=== PATIENT | female | born 1965 | race American Indian/Alaskan Native ===

== ENCOUNTER 2016-12-06 19:39 | Emergency (ER) | payer BC | END 2016-12-06 19:40 | disposition left against medical advice (07) | LOC: ED 19:39 | DX: R42 Dizziness and giddiness (principal); R53.1 Weakness; Z53.21 Procedure and treatment not carried out due to patient leaving prior to being seen by health care provider ==

== ENCOUNTER 2016-12-15 13:13 | Inpatient (IN) | payer BC, OTHER ==
--- NOTE | 2016-12-15 20:27 | Emergency Department Report ---
HPI - General Chief Complaint: Weakness Time Seen by Provider: 12/15/16 20:01 - HPI HPI: Room 25 Patient is a 51-year-old female presenting with chief complaint of weakness. Patient states for the past 3 weeks since her blood pressure medication has been changed she has felt lethargic. The patient states she has had intermittent chest discomfort. The patient admits to dyspnea on exertion and shortness of breath. Patient admits to easy fatigability. Patient states she went to [facility] 12/11/2016. Patient states she had a pelvic ultrasound performed which was normal, chest x-ray and EKG which were normal. The patient was told she was anemic but not severe enough to require blood transfusion. The patient was discharged to continue taking her iron but her symptoms did not improve so she comes to the ED today for evaluation. Patient states she had a stress test in 2014 but has never had a cardiac catheterization Location: [see above] Duration: Intermittent 3 weeks Quality: Discomfort, fatigue Severity: Moderate Modifying factors: [see above] Context: [see above] Mode of transportation: [not driving] ED Past Medical Hx - Past Medical History Previous Medical History?: Yes Hx Hypertension: Yes Additional medical history: ANEMIA, HEART MURMUR, FIBROIDS - Surgical History Past Surgical History?: Yes Additional Surgical History: RIGHT EYE LASER SURGERY 03/25/15 - Family History Family history: no significant - Social History Smoking Status: Never Smoker Substance Use Type: None - Medications Home Medications: Home Medications Medication Instructions Recorded Confirmed Last Taken Type Brimonidine Tartrate [Alphagan P 1 drop OU Q8HR 03/26/15 03/26/15 Unknown History 0.1%] Clarithromycin [Biaxin] 500 mg PO BID 03/26/15 03/26/15 Unknown History Ferrous Sulfate [Feosol 325 MG tab] 325 mg PO BID 03/26/15 03/26/15 Unknown History Ketorolac Ophth Soln (Nf) [Acular 1 drop OP QID 03/26/15 03/26/15 Unknown History Ophth Soln 0.5%] Potassium Gluconate 595 mg PO DAILY 03/26/15 03/26/15 Unknown History amLODIPine [Norvasc] 5 mg PO DAILY 03/26/15 03/26/15 Unknown History metroNIDAZOLE [Flagyl] 500 mg PO BID 03/26/15 03/26/15 Unknown History Pantoprazole [Protonix TAB] 20 mg PO BID #60 tablet. 03/28/15 Unknown Rx ED Review of Systems ROS: Stated complaint: FATIGUE Other details as noted in HPI Comment: All other systems reviewed and negative Constitutional: malaise Eyes: denies: eye pain, eye discharge, vision change ENT: denies: ear pain, throat pain Respiratory: shortness of breath, SOB with exertion. denies: cough, wheezing Cardiovascular: chest pain Endocrine: no symptoms reported Gastrointestinal: denies: abdominal pain, nausea, diarrhea Genitourinary: abnormal menses. denies: urgency, dysuria, discharge Musculoskeletal: denies: back pain, joint swelling, arthralgia Skin: denies: rash, lesions Neurological: headache Psychiatric: denies: anxiety, depression Hematological/Lymphatic: denies: easy bleeding, easy bruising Physical Exam - Physical Exam Vital Signs: Vital Signs 12/15/16 14:33 Temperature 98.3 F Pulse Rate 64 Respiratory 18 Rate Blood Pressure 151/87 O2 Sat by Pulse 100 Oximetry Physical Exam: GENERAL: The patient is well-developed well-nourished female sitting on stretcher not appearing to be in acute distress. [] HEENT: Normocephalic. Atraumatic. Extraocular motions are intact. NECK: Supple. No meningitic signs are noted. Trachea midline CHEST/LUNGS: Clear to auscultation. There is no respiratory distress noted. HEART/CARDIOVASCULAR: Regular. There is no tachycardia. There is no gallop rub or murmur. ABDOMEN: Abdomen is soft, nontender. Patient has normal bowel sounds. There is no abdominal distention. SKIN: There is no rash. There is no edema. There is no diaphoresis. NEURO: The patient is awake, alert, and oriented. The patient is cooperative. The patient has no focal neurologic deficits. The patient has normal speech. Cranial nerves II through XII grossly intact, no drift MUSCULOSKELETAL: There is no evidence of acute injury. ED Course Vital Signs 12/15/16 14:33 Temperature 98.3 F Pulse Rate 64 Respiratory 18 Rate Blood Pressure 151/87 O2 Sat by Pulse 100 Oximetry ED Medical Decision Making - Lab Data Result diagrams: 12/15/16 23:02 12/15/16 23:02 Laboratory Tests 12/15/16 12/15/16 12/15/16 20:29 20:48 20:48 WBC RBC Hgb Hct MCV MCH MCHC RDW Plt Count Lymph % (Auto) Griggs % (Auto) Eos % (Auto) Baso % (Auto) Lymph # Griggs # Eos # Baso # Seg Neutrophils % Seg Neutrophils # PT 13.5 INR 1.04 APTT 40.4 H Sodium Potassium Chloride Carbon Dioxide Anion Gap BUN Creatinine Estimated GFR BUN/Creatinine Ratio Glucose Calcium Troponin T < 0.010 NT-Pro-B Natriuret Pep 23.44 TSH Free T4 HCG, Qual Urine Color Yellow Urine Turbidity Clear Urine pH 5.0 Ur Specific Taiban 1.016 Urine Protein <15 mg/dl Urine Glucose (UA) Neg Urine Ketones 20 Urine Blood Mod Urine Nitrite Neg Urine Bilirubin Neg Urine Urobilinogen < 2.0 Ur Leukocyte Esterase Neg Urine WBC (Auto) 1.0 Urine RBC (Auto) 1.0 U Epithel Cells (Auto) 3.0 Urine Bacteria (Auto) 1+ Urine Mucus Few 12/15/16 12/15/16 12/15/16 20:48 20:48 23:02 WBC 7.2 RBC 4.18 Hgb 9.2 L Hct 28.7 L MCV 69 L MCH 22 L MCHC 32 RDW 17.4 H Plt Count 336 Lymph % (Auto) 28.9 Griggs % (Auto) 5.9 Eos % (Auto) 1.5 Baso % (Auto) 0.6 Lymph # 2.1 Griggs # 0.4 Eos # 0.1 Baso # 0.0 Seg Neutrophils % 63.1 Seg Neutrophils # 4.5 PT INR APTT Sodium Potassium Chloride Carbon Dioxide Anion Gap BUN Creatinine Estimated GFR BUN/Creatinine Ratio Glucose Calcium Troponin T NT-Pro-B Natriuret Pep TSH 2.390 Free T4 1.25 HCG, Qual Negative Urine Color Urine Turbidity Urine pH Ur Specific Taiban Urine Protein Urine Glucose (UA) Urine Ketones Urine Blood Urine Nitrite Urine Bilirubin Urine Urobilinogen Ur Leukocyte Esterase Urine WBC (Auto) Urine RBC (Auto) U Epithel Cells (Auto) Urine Bacteria (Auto) Urine Mucus 12/15/16 23:02 WBC RBC Hgb Hct MCV MCH MCHC RDW Plt Count Lymph % (Auto) Griggs % (Auto) Eos % (Auto) Baso % (Auto) Lymph # Griggs # Eos # Baso # Seg Neutrophils % Seg Neutrophils # PT INR APTT Sodium 140 Potassium 4.1 Chloride 103.3 Carbon Dioxide 24 Anion Gap 17 BUN 10 Creatinine 0.7 Estimated GFR > 60 BUN/Creatinine Ratio 14.28 Glucose 91 Calcium 9.2 Troponin T NT-Pro-B Natriuret Pep TSH Free T4 HCG, Qual Urine Color Urine Turbidity Urine pH Ur Specific Taiban Urine Protein Urine Glucose (UA) Urine Ketones Urine Blood Urine Nitrite Urine Bilirubin Urine Urobilinogen Ur Leukocyte Esterase Urine WBC (Auto) Urine RBC (Auto) U Epithel Cells (Auto) Urine Bacteria (Auto) Urine Mucus - EKG Data -: EKG Interpreted by Me EKG shows normal: sinus rhythm Rate: normal - EKG Data When compared to previous EKG there are: previous EKG unavailable Interpretation: nonspecific ST-T wave gopi (T-wave inversion in lead 3) - Radiology Data Radiology results: report reviewed (CT head), image reviewed (CT head, chest x- ray) interpreted by me: Chest x-ray-no focal infiltrates, no pneumothorax CT head (read by radiologist)-no acute abnormality - Differential Diagnosis symptomatic anemia, hypothyroidism, electrolyte imbalance, ICH Critical care attestation.: If time is entered above; I have spent that time in minutes in the direct care of this critically ill patient, excluding procedure time. ED Disposition Clinical Impression: Chest discomfort, Fatigue Disposition: OP ADMITTED IP TO THIS HOSP Is pt being admited?: Yes Does the pt Need Aspirin: Yes Condition: Fair Referrals: PRIMARY CARE, [Primary Care Provider] - 3-5 Days Time of Disposition: 23:43 (hospitalist paged)
[2016-12-15 21:51] LABS: Bacteria,Urine 1+ /HPF (Negative); Bilirubin,Urine NEG (Negative); Blood,Urine MOD (Negative); Ketones,Urine 20 mg/dL (Negative); Leukocyte Esterase,Urine NEG (Negative); Mucus,Urine FEW /HPF; Nitrite,Urine NEG (Negative); Protein,Urine <15 mg/dL mg/dL (Negative); Urobilinogen,Urine < 2.0 mg/dL (<2.0)
[2016-12-15 22:05] LABS: INR 1.04 (0.87-1.13)
[2016-12-15 22:06] LABS: Partial Thromboplastin Time 40.4 Sec. (24.2-36.6)
--- NOTE | 2016-12-15 22:13 | Cat Scan Report ---
FINAL REPORT EXAM: CT HEAD/BRAIN WO CON HISTORY: headache, dizziness TECHNIQUE: CT imaging acquired through the head without intravenous contrast. Transaxial reformations are provided. PRIORS: None. FINDINGS: The ventricles, cisterns and sulci are within normal limits. No intraparenchymal or extra-axial mass, hemorrhage, or mass effect. Eng and white-matter differentiation is within normal limits for patient age. Normal spherical shape of the globes. Paranasal sinuses and mastoid air cells are clear. No skull or facial fracture visualized. IMPRESSION: No acute intracranial abnormality.
[2016-12-15 23:32] LABS: Basophils % (Auto) 0.6 % (0.0-1.8); Eosinophils % (Auto) 1.5 % (0.0-4.3); Hematocrit 28.7 % (30.3-42.9); Hemoglobin 9.2 gm/dl (10.1-14.3); Mean Corpuscular HGB Conc 32 % (30-34); Platelet Count 336 K/mm3 (140-440); Red Blood Count 4.18 M/mm3 (3.65-5.03); Red Cell Distribution Width 17.4 % (13.2-15.2); White Blood Count 7.2 K/mm3 (4.5-11.0)
[2016-12-15 23:34] LABS: Anion Gap 17 mmol/L; BUN/Creatinine Ratio 14.28; Blood Urea Nitrogen 10 mg/dL (7-17); Calcium 9.2 mg/dL (8.4-10.2); Carbon Dioxide 24 mmol/L (22-30); Chloride 103.3 mmol/L (98-107); Glucose 91 mg/dL (65-100); Potassium 4.1 mmol/L (3.6-5.0); Sodium 140 mmol/L (137-145)
[2016-12-15 23:41] LABS: Mean Corpuscular Hemoglobin 22 pg (28-32); Mean Corpuscular Volume 69 fl (79-97)
[2016-12-16] MEDS ORDERED: DULCOLAX PR PRN (00:36)
[2016-12-16] MEDS ORDERED: MILK OF MAGNESIA PO PRN (00:36)
[2016-12-16] MEDS ORDERED: ZOFRAN IV PRN (00:36)
--- NOTE | 2016-12-16 00:48 | History and Physical Report ---
History of Present Illness Date of examination: 12/15/16 Date of admission: 12/15/16 23:49 History of present illness: 51-year-old woman history of hypertension, migraine, fibrous comes emergency room with complaints of chest pain located in the epigastric area which she describes as a pressure-like sensation, intermittent in nature lasting for 10 minutes, intensity, 10, no radiation. She admits to shortness breath, palpitations, no nausea vomiting or diaphoresis. Patient stated that her medication was changed 3 weeks ago after which her symptoms started. Norvasc was discontinued, she was started on nifedipine and lisinopril. She was seen at [place] for similar symptoms, was discharged from the emergency room Patient denies cough, abdominal pain, hematochezia, dysuria, frequency, focal weakness, dysarthria, fever chills, polydipsia polyuria, hot or cold intolerance , easy bruisability, or rash or bleeding from mucosal membrane, rhinorrhea, epistaxis, earache, tinnitus, blurry vision, eye discharge, anxiety, depression. Other review of systems negative PAST SURGICAL HISTORY: Eye surgery SOCIAL HISTORY: Denies tobacco, drugs, alcohol FAMILY HISTORY: Hypertension Medications and Allergies Allergies Allergy/AdvReac Type Severity Reaction Status Date / Time regadenoson [From Lexiscan] Allergy Intermediate Hives Verified 03/27/15 20:17 aspirin Allergy Nausea Verified 03/26/15 21:24 codeine Allergy Dizziness Verified 03/26/15 21:24 Penicillins Allergy Unknown Verified 03/26/15 21:24 Home Medications Medication Instructions Recorded Confirmed Last Taken Type Brimonidine Tartrate [Alphagan P 1 drop OU Q8HR 03/26/15 03/26/15 Unknown History 0.1%] Clarithromycin [Biaxin] 500 mg PO BID 03/26/15 03/26/15 Unknown History Ferrous Sulfate [Feosol 325 MG tab] 325 mg PO BID 03/26/15 03/26/15 Unknown History Ketorolac Ophth Soln (Nf) [Acular 1 drop OP QID 03/26/15 03/26/15 Unknown History Ophth Soln 0.5%] Potassium Gluconate 595 mg PO DAILY 03/26/15 03/26/15 Unknown History amLODIPine [Norvasc] 5 mg PO DAILY 03/26/15 03/26/15 Unknown History metroNIDAZOLE [Flagyl] 500 mg PO BID 03/26/15 03/26/15 Unknown History Pantoprazole [Protonix TAB] 20 mg PO BID #60 tablet. 03/28/15 Unknown Rx Active Meds: Active Medications Acetaminophen (Tylenol) 650 mg PO Q4H PRN PRN Reason: Pain MILD(1-3)/Fever >100.5/FRANCO Bisacodyl (Dulcolax) 10 mg AR QDAY PRN PRN Reason: Constipation unrelieved by MOM Ferrous Sulfate (Feosol) 325 mg PO BID STEPHEN Magnesium Hydroxide (Milk Of Magnesia) 30 ml PO Q4H PRN PRN Reason: Constipation Miscellaneous Medication (Brimonidine Tartrate [Alphagan P 0.1%]) 1 drop OU Q8HR STEPHEN Miscellaneous Medication (Ketorolac Ophth Soln (Nf)) 1 drop OP QID STEPHEN Ondansetron HCl (Zofran) 4 mg IV Q8H PRN PRN Reason: N/V unrelieved by Reglan Pantoprazole Sodium (Protonix) 20 mg PO BID [facility] Exam - Physical Exam Narrative exam: Gen. appearance: Patient lying in bed, no apparent distress HEENT: Normocephalic, atraumatic, pupils equally round and reactive to light, extraocular movement intact, and no sclericterus,. No JVD or thyromegaly or nodule,neck supple, no carotid bruit ,mucous membranes moist, no exudate or erythema Heart: S1, S2, regular rate and rhythm Lungs: Clear to auscultation bilaterally, breathing comfortable Abdomen: Positive bowel sounds, nontender, nondistended, no organomegaly Extremity: No edema, cyanosis, clubbing Skin: No rash, nodules, warm, dry Neuro: Oriented 3, cranial nerves II-12 intact, speech is fluent, motor and sensory intact - Constitutional Vitals: Temp Pulse Resp BP Pulse Ox 98 F 70 70 H 143/77 100 12/15/16 20:00 12/15/16 20:00 12/15/16 20:17 12/15/16 20:00 12/15/16 20:00 Results - Labs CBC & Chem 7: 12/15/16 23:02 12/15/16 23:02 - Imaging and Cardiology EKG: image reviewed Chest x-ray: image reviewed CT Scan - head: report reviewed Assessment and Plan Chest pain Hypertension Migraine Symptoms most likely suggestive of side effect from nifedipine Discontinue nifedipine, check cardiac enzymes, obtain stress test Start IV morphine, DVT prophylaxis, IV hydralazine for blood pressure control
[2016-12-16 04:29] LABS: Creatine Kinase MB 1.3 ng/mL (0.0-4.0)
[2016-12-16 04:34] LABS: Creatine Kinase 83 units/L (30-135)
[2016-12-16] MEDS ORDERED: NON-FORMULARY (Brimonidine Tartrate [Alphagan P 0.1%] 1 DROP) OU SCH (06:00)
[2016-12-16 07:13] LABS: Creatine Kinase MB 1.5 ng/mL (0.0-4.0)
[2016-12-16 07:17] LABS: Creatine Kinase 82 units/L (30-135)
--- NOTE | 2016-12-16 08:02 | XRay Report ---
Single view chest: Compared to 03/26/15. History: Chest pain. Findings: Normal cardiomediastinal silhouette. Trachea is midline. No consolidation, pneumothorax or pleural effusion. Impression: No acute cardiopulmonary findings.
--- NOTE | 2016-12-16 09:15 | Admit Criteria Form ---
Admission Criteria Documentation: CARDIOLOGY GRG Clinical Indications for Admission to Inpatient Care ( Place 'X' for any and all applicable criteria): Hospital admission is needed for appropriate care of the patient because of ANY ONE of the following (1): [ ] I. Hemodynamic instability as indicated by ALL of the following (1)(2)(3) (4)(5) [ ]a) Vital signs or other findings not as expected for chronic patient condition or baseline [ ]b) Instability indicated by ANY ONE of the following: [ ]i) Hypotension [ ]ii) Symptomatic Tachycardia unresponsive to treatment ( e.g., analgesia, fluids, sedation as indicated) [ ]iii) Inadequate perfusion indicated by ANY ONE of the following: [ ] 1) Lactic acidosis (> 2 mmol/L) [ ] 2) New abnormal capillary refill (> 3 seconds) [ ] 3) Reduced urine output [ ] 4) New altered mental status [ ]iv) Orthostatic vital sign changes unresponsive to treatment (e.g., fluids) [ ]v) IV inotropic or vasopressor medication required to maintain adequate blood pressure or perfusion [ ] II. Severe heart failure as indicated by ANY ONE of the following(17)(18) [ ]a) Respiratory distress [ ]b) Hypotension [ ]c) Anasarca (refractory to outpatient therapy) [ ]d) Cardiac arrhythmias of immediate concern [ ]e) Myocardial ischemia [ ] III. Cardiac arrhythmias or findings of immediate concern indicated by ANY ONE of the following (19)(20): [ ] a) Heart rhythms that are inherently dangerous or unstable indicated by ANY ONE of the following (21)(22)(23): [ ] i) Resuscitated ventricular fibrillation or cardiac arrest [ ] ii) Ventricular escape rhythm [ ] iii) Sustained ventricular tachycardia (30 seconds or more of ventricular rhythm at greater than 100 beats per minute) [ ] iv) Nonsustained ventricular tachycardia and ANY ONE of the following: [ ] 1) Suspected cardiac ischemia as cause or consequence of ventricular tachycardia [ ] 2) In setting of acute myocarditis [ ] b) Unstable cardiac conduction defects indicated by ANY ONE of the following(23)(24)(25) [ ] i) Type II second-degree atrioventricular block [ ]ii) Third-degree atrioventricular block [ ]iii) New-onset left bundle branch block with suspected myocardial ischemia [ ]c) Any heart rhythm and ANY ONE of the following (21)(22)(26)(27) (28) [ ] i) Continuous long-term ECG monitoring needed (e.g., initiation of drug requiring monitoring for more than 24 hours) [ ] ii) Patient has automatic implanted cardioverter defibrillator that is repeatedly firing, malfunctioning, or in need of immediate adjustment of settings beyond the scope of ambulatory or observation care [ ]d) Heart rhythms of concern due to ANY ONE of the following: [ ] i) Hypotension [ ] ii) Respiratory distress [ ] iii) Association with other significant symptoms (e.g., bradycardia with syncope or ongoing dizziness, supraventricular tachycardia with chest pain (14)(15)(17) [ ] IV. Monitoring for cardiac contusion beyond the scope of observation care needed [A](30)(31)(32) [ ] V. Surgical or device complication (e.g., valve replacement complication , pacemaker dysfunction) (35)(41)(44)(45)(46) [ ] . Inpatient palliative care needed. [B](49) Also use Inpatient Palliative Care Criteria [ ] VII. Nonbacterial thrombotic (marantic) endocarditis (36)(43)(47)(48) [X ] VIII. Cardiology condition, symptom, or finding for which emergency and observation care has failed or are not considered appropriate. [ ] IX. Acute valvular disease requiring inpatient as indicated by ANY ONE of the following (41) [ ]a) Acute valvular regurgitation (42) [ ]b) Noninfectious valvulitis (43) [ ]c) Obstructive valve thrombosis [ ]d) Paravalvular leak [ ]e) Other significant valvular disorder remaining after emergency or observation level of care (as appropriate) [ ]X. Pericardial disease requiring inpatient treatment as indicated by ANY ONE of the following (33)(34)(35)(36)(37) [ ]a) Suspected tamponade (38)(39)(40) [ ]b) Hemopericardium [ ]c) Other significant pericardial disorder remaining after emergency or observation level of care (as appropriate) [ ] XI. Cardiac ischemia beyond scope of emergency and observation care. [ ] XII. Hypertension requiring inpatient treatment as indicated by ANY ONE of the following (6)(7)(8) [ ]a) SBP greater than 220 mm Hg or DBP greater than 120 mmHg despite treatment [ ]b) SBP greater than 140 mm Hg or DBP greater than 100 mm Hg with evidence of acute end organ damage as indicated by ANY ONE of the following [ ] i) Altered mental status [ ] ii) Acute renal failure as indicated by new onset of ANY ONE of the following (9)(10)(11)(12)(13) [ ]1) 3-fold rise in serum creatinine from baseline [ ]2) Serum creatinine greater than 4 mg/dL ( 354 micromoles/L) with acute rise greater than 0.5 mg/dL (44.2 micromoles/L) [ ]3) Reduction of more than 75% in estimated glomerular filtration rate from baseline [ ]4) Estimated glomerular filtration rate less than 35 mL/min/1.73m2 (0.59 mL/sec/1.73m2) in child up to 18 years of age [ ]5) Cessation of urine output indicated by ALL of the following [ ]A. Adequate volume status [ ]B. Inadequate urine output as indicated by ANY ONE of the following [ ]a. Urine output less than 0.3 mL/kg/hr for 24 hours [ ]b. Anuria (urine output less than 0.1 mL/kg/hr) for 12 hours [ ] iii) Aortic dissection [ ] iv) Myocardial Ischemia [ ] v) Left ventricular heart failure [ ]vi) Retinal Hemorrhage [ ]vii) Other significant finding [ ]c) Hypertension in child requiring inpatient treatment as indicated by ALL of the following(14)(15)(16) [ ] i) Outpatient treatment not effective, not available, or not appropriate [ ]ii) SBP or DBP greater than 95th percentile for age [ ]iii) Evidence of acute end organ damage as indicated by ANY ONE of the following [ ]1) Altered mental status [ ]2) Acute renal failure as indicated by new onset of ANY ONE of the following(9)(10)(11)(12)(13) [ ]A. 3-fold rise in serum creatinine from baseline [ ]B. Serum creatinine greater than 4 mg/dL (354 micromoles/L) with acute rise greater than 0.5 mg/dL (44.2 micromoles/L) [ ]C. Reduction of more than 75% in estimated glomerular filtration rate from baseline [ ]D. Estimated glomerular filtration rate less than 35 mL/min/1.73m2 (0.59 mL/sec/1.73m2) in child up to 18 years of age [ ]E. Cessation of urine output indicated by ALL of the following [ ]a. Adequate volume status [ ]b. Inadequate urine output as indicated by ANY ONE of the following [ ]i) Urine output less than 0.3 mL/kg/hr for 24 hours [ ]ii) Anuria ( urine output less than 0.1 mL/kg/hr) for 12 hours [ ]3) Severe headache [ ]4) Visual disturbance [ ]5) Retinal hemorrhage [ ]6) Other significant finding [ ]XIII. Complications of transplanted heart indicated by ANY ONE of the following(61): [ ]a) Acute graft rejection requiring inpatient management (eg, intravenous immunosuppression)(62)(63) [ ]b) Acute graft heart failure indicated by ANY ONE of the following(64): [ ]i) Hemodynamic instability [ ]ii) Cardiac arrhythmias of immediate concern [ ]iii) Pulmonary edema that is very severe (eg, mechanical ventilation needed, imminent or likely, need for 100% oxygen to keep oxygen saturation above 90%) [ ]iv) Pulmonary edema that is persistent as indicated by ALL of the following: [ ]1) New need for oxygen therapy to keep oxygen saturation above 90% (or increased FiO2 need from baseline) [ ]2) Has not improved sufficiently with emergency department or observation care IV diuretics or other heart failure treatments[E] [ ]v) Altered mental status that is severe or persistent [ ]vi) Increased creatinine (new on laboratory test) with reduction of more than 50% in estimated glomerular filtration rate from baseline [ ]vii) Progressively (ongoing) rising creatinine (known from past laboratory test) with reduction of more than 25% in estimated glomerular filtration rate from baseline [ ]viii) Acute renal failure [ ]ix) Acute peripheral ischemia (eg, examination shows pulseless, cool, mottled, or cyanotic extremity) [ ]x) Pulmonary artery catheter monitoring needed [ ]xi) Other sign or symptom of heart failure requiring inpatient treatment (ie, too severe or not responsive to outpatient and observation care treatment) [ ]c) Infection requiring inpatient management (eg, Hemodynamic instability, need for intravenous antimicrobial treatment)(66)(67)(68)(69)(70) [ ]d) Cardiac allograft vasculopathy requiring inpatient management ( eg evidence of cardiac ischemia)(71) [ ]e) Other complication of transplanted heart (eg, stroke, severe pulmonary hypertension, severe valvular dysfunction) requiring inpatient management(72) The original [facility] content created by [facility] has been revised. The portions of the content which have been revised are identified through the use of italic text or in bold, and [facility] has neither reviewed nor approved the modified material. All other unmodified content is copyright [facility] [employer]. Please see references footnoted in the original [facility] [employer] edition 2016 Admission Criteria Met: Yes
[2016-12-16] MEDS: TYLENOL PO PRN ×2 (09:40→16:24)
[2016-12-16] MEDS ORDERED: KETOROLAC OP SCH (10:00)
[2016-12-16] MEDS ORDERED: FEOSOL PO SCH (10:00)
[2016-12-16] MEDS ORDERED: PROTONIX PO SCH (10:00)
[2016-12-16] MEDS ORDERED: LEXISCAN IV ONE (12:32)
--- NOTE | 2016-12-16 13:40 | Progress Note ---
Assessment and Plan Assessment and plan: Patient is 51-year-old woman history of morbid obesity, hypertension and anemia who [place] [facility] [place] pains. Patient blames all her problems on nifedipine. She was on 5 mg of amlodipine and her pcp Dr. Eric's changed amlodipine to the nifedipine and lisinopril. Lisinopril made her lethargic so she was taken off of that but she did take after she was taken off by pcp. She started to have same problems which she is attributing to nifedipine. 1. Chest pain most likely muscle skeletal 2. Hypertension, chronic worsening 3. Microcytic anemia: Discuss outpatient screening Stress test negative she will be discharged home History Interval history: Patient seen and examined. Follow up on current diagnosis. Overnight uneventful. No cp, sob, n/v or severe headaches. Imaging, old records, testing, labs, nursing notes reviewed. Plan discussed with patient. Hospitalist Physical - Physical exam Narrative exam: GEN: WDWN, NAD, AWAKE, ALERT, ORIENTATED 3, BMI 40.1 HEENT: NCAT, PERRL, EOMI, OP CLEAR NECK: SUPPLE, NO THYROMEGALY, NO JVD, NO LAD CVS: RRR, NORMAL S1S2 LUNGS/CHEST: CTA B, NORMAL CHEST EXPANSION B, GOOD AIR ENTRY B, reproducible chest wall tenderness ABD: SOFT NTND, GBS, NO REBOUND OR GUARDING EXT/SKIN: NO SIGNIFICANT EDEMA OR RASH MSK: FROM X 4 EXTREMITIES NEURO: CN 2-12 GROSSLY INTACT, NO new FOCAL DEFICITS PSY: CALM - Constitutional Vitals: Temp Pulse Resp BP Pulse Ox 97.0 F L 60 16 106/56 100 12/16/16 07:58 12/16/16 11:00 12/16/16 09:40 12/16/16 07:58 12/16/16 07:58 Results - Labs CBC & Chem 7: 12/15/16 23:02 12/15/16 23:02 Labs: Laboratory Last Values WBC 7.2 K/mm3 (4.5-11.0) 12/15/16 23:02 RBC 4.18 M/mm3 (3.65-5.03) 12/15/16 23:02 Hgb 9.2 gm/dl (10.1-14.3) L 12/15/16 23:02 Hct 28.7 % (30.3-42.9) L 12/15/16 23:02 MCV 69 fl (79-97) L 12/15/16 23:02 MCH 22 pg (28-32) L 12/15/16 23:02 MCHC 32 % (30-34) 12/15/16 23:02 RDW 17.4 % (13.2-15.2) H 12/15/16 23:02 Plt Count 336 K/mm3 (140-440) 12/15/16 23:02 Lymph % (Auto) 28.9 % (13.4-35.0) 12/15/16 23:02 [place] % (Auto) 5.9 % (0.0-7.3) 12/15/16 23:02 Eos % (Auto) 1.5 % (0.0-4.3) 12/15/16 23:02 Baso % (Auto) 0.6 % (0.0-1.8) 12/15/16 23:02 Lymph # 2.1 K/mm3 (1.2-5.4) 12/15/16 23:02 [place] # 0.4 K/mm3 (0.0-0.8) 12/15/16 23:02 Eos # 0.1 K/mm3 (0.0-0.4) 12/15/16 23:02 Baso # 0.0 K/mm3 (0.0-0.1) 12/15/16 23:02 Seg Neutrophils % 63.1 % (40.0-70.0) 12/15/16 23:02 Seg Neutrophils # 4.5 K/mm3 (1.8-7.7) 12/15/16 23:02 PT 13.5 Sec. (12.2-14.9) 12/15/16 20:48 INR 1.04 (0.87-1.13) 12/15/16 20:48 APTT 40.4 Sec. (24.2-36.6) H 12/15/16 20:48 Sodium 140 mmol/L (137-145) 12/15/16 23:02 Potassium 4.1 mmol/L (3.6-5.0) 12/15/16 23:02 Chloride 103.3 mmol/L (98-107) 12/15/16 23:02 Carbon Dioxide 24 mmol/L (22-30) 12/15/16 23:02 Anion Gap 17 mmol/L 12/15/16 23:02 BUN 10 mg/dL (7-17) 12/15/16 23:02 Creatinine 0.7 mg/dL (0.7-1.2) 12/15/16 23:02 Estimated GFR > 60 ml/min 12/15/16 23:02 BUN/Creatinine Ratio 14.28 % 12/15/16 23:02 Glucose 91 mg/dL (65-100) 12/15/16 23:02 Calcium 9.2 mg/dL (8.4-10.2) 12/15/16 23:02 Total Creatine Kinase 82 units/L (30-135) 12/16/16 06:04 CK-MB (CK-2) 1.5 ng/mL (0.0-4.0) 12/16/16 06:04 CK-MB (CK-2) Rel Index 1.8 (0-4) 12/16/16 06:04 Troponin T < 0.010 ng/mL (0.00-0.029) 12/16/16 06:04 NT-Pro-B Natriuret Pep 23.44 pg/mL (0-900) 12/15/16 20:48 TSH 2.390 mlU/mL (0.270-4.200) 12/15/16 20:48 Free T4 1.25 ng/dL (0.76-1.46) 12/15/16 20:48 HCG, Qual Negative (Negative) 12/15/16 20:48 Urine Color Yellow (Yellow) 12/15/16 20:29 Urine Turbidity Clear (Clear) 12/15/16 20:29 Urine pH 5.0 (5.0-7.0) 12/15/16 20:29 Ur Specific [place] 1.016 (1.003-1.030) 12/15/16 20:29 Urine Protein <15 mg/dl mg/dL (Negative) 12/15/16 20:29 Urine Glucose (UA) Neg mg/dL (Negative) 12/15/16 20:29 Urine Ketones 20 mg/dL (Negative) 12/15/16 20:29 Urine Blood Mod (Negative) 12/15/16 20:29 Urine Nitrite Neg (Negative) 12/15/16 20:29 Urine Bilirubin Neg (Negative) 12/15/16 20:29 Urine Urobilinogen < 2.0 mg/dL (<2.0) 12/15/16 20:29 Ur Leukocyte Esterase Neg (Negative) 12/15/16 20:29 Urine WBC (Auto) 1.0 /HPF (0.0-6.0) 12/15/16 20:29 Urine RBC (Auto) 1.0 /HPF (0.0-6.0) 12/15/16 20:29 U Epithel Cells (Auto) 3.0 /HPF (0-13.0) 12/15/16 20:29 Urine Bacteria (Auto) 1+ /HPF (Negative) 12/15/16 20:29 Urine Mucus Few /HPF 12/15/16 20:29
--- NOTE | 2016-12-16 13:44 | Discharge Summary ---
Providers - Providers Date of Admission: 12/15/16 23:49 Date of discharge: 12/16/16 Attending physician: LAURITA DANIEL Primary care physician: TIFFANY CUNHA MD Hospitalization Condition: Stable Hospital course: Patient is 51-year-old woman with history of morbid obesity, hypertension and anemia who was just discharged from [facility] with similar complaints of chest pains. Patient blames all her problems on nifedipine. She was on 5 mg of amlodipine and her pcp Dr. Ceja changed amlodipine to the nifedipine and lisinopril. Lisinopril made her lethargic so she was taken off of that but she did take after she was taken off by pcp. She started to have same problems which she is attributing to nifedipine. 1. Chest pain most likely muscle skeletal 2. Hypertension, chronic worsening 3. Microcytic anemia: Discuss outpatient screening Stress test negative she will be discharged home Disposition: DISCHARGED TO HOME OR SELFCARE Time spent for discharge: 31 minutes Core Measure Documentation - Palliative Care Palliative Care/ Comfort Measures: Not Applicable - Core Measures Any of the following diagnoses?: none - VTE Discharge Requirements Deep Vein Thrombosis/Pulmonary Embolism Present on Admission: No Has pt received <5 days of overlap therapy or INR<2.0: No Anticoagulant overlap therapy prescribed at discharge: No Contraindication No Overlap Therapy order at DC: Not Indicated Exam - Physical Exam Narrative exam: GEN: WDWN, NAD, AWAKE, ALERT, ORIENTATED 3, BMI 40.1 HEENT: NCAT, PERRL, EOMI, OP CLEAR NECK: SUPPLE, NO THYROMEGALY, NO JVD, NO LAD CVS: RRR, NORMAL S1S2 LUNGS/CHEST: CTA B, NORMAL CHEST EXPANSION B, GOOD AIR ENTRY B, reproducible chest wall tenderness ABD: SOFT NTND, GBS, NO REBOUND OR GUARDING EXT/SKIN: NO SIGNIFICANT EDEMA OR RASH MSK: FROM X 4 EXTREMITIES NEURO: CN 2-12 GROSSLY INTACT, NO new FOCAL DEFICITS PSY: CALM - Constitutional Vitals: Temp Pulse Resp BP Pulse Ox 97.0 F L 60 16 106/56 100 12/16/16 07:58 12/16/16 11:00 12/16/16 09:40 12/16/16 07:58 12/16/16 07:58 Plan Activity: advance as tolerated (no strenous activites until cleared by PCP. ) Diet: low salt Follow up with: PRIMARY CARE, [Primary Care Provider] - 3-5 Days
[2016-12-16] MEDS ORDERED: DOBUTamine 100 MG in D5W 92 ML IV SCH (14:00)
[2016-12-16 15:58] VITALS: BP 117/65
--- NOTE | 2016-12-17 04:49 | Treadmill Report ---
INDICATION: Chest pain. FINDINGS: There is no scintigraphic evidence of myocardial ischemia. The left ventricle is normal in size and systolic function. The left ventricular ejection fraction is measured at 60%. Normal wall motion and wall thickening is noted on gated imaging. CONCLUSION: Normal perfusion scan. JOB# [id number] CHALINO/NOMAN
== END 2016-12-17 09:35 | disposition home or self-care (01) | DRG 313 ==
LOC: ED 13:13 → 4A 23:49
PROVIDERS: ADMIT Internal Medicine; ATTEND Internal Medicine
DX: R07.89 Other chest pain (principal); Z68.41 Body mass index [BMI] 40.0-44.9, adult; G43.909 Migraine, unspecified, not intractable, without status migrainosus; I10 Essential (primary) hypertension; E66.01 Morbid (severe) obesity due to excess calories; D50.9 Iron deficiency anemia, unspecified; Z79.84 Long term (current) use of oral hypoglycemic drugs; Z88.0 Allergy status to penicillin; Z88.6 Allergy status to analgesic agent; Z88.8 Allergy status to other drugs, medicaments and biological substances; Z82.49 Family history of ischemic heart disease and other diseases of the circulatory system
CPT/HCPCS: 36415; 70450; 71010; 78452; 80048; 81001; 82550; 82553; 83880; 84439; 84443; 84484; 84703; 85025; 85610; 85730; 93005; 93010; 93017; A9502; J1250; J2785

== ENCOUNTER 2017-01-03 00:08 | Emergency (ER) | payer OTHER ==
[2017-01-03 00:42] LABS: Basophils % (Auto) 0.5 % (0.0-1.8); Eosinophils % (Auto) 0.5 % (0.0-4.3); Hematocrit 31.3 % (30.3-42.9); Hemoglobin 9.9 gm/dl (10.1-14.3); Mean Corpuscular HGB Conc 32 % (30-34); Platelet Count 410 K/mm3 (140-440); Red Blood Count 4.58 M/mm3 (3.65-5.03); Red Cell Distribution Width 18.2 % (13.2-15.2); White Blood Count 9.1 K/mm3 (4.5-11.0)
[2017-01-03 01:04] LABS: Anion Gap 20 mmol/L; BUN/Creatinine Ratio 14.28; Blood Urea Nitrogen 10 mg/dL (7-17); Carbon Dioxide 22 mmol/L (22-30); Glucose 107 mg/dL (65-100); Potassium 3.7 mmol/L (3.6-5.0); Sodium 136 mmol/L (137-145)
[2017-01-03 01:16] LABS: Mean Corpuscular Hemoglobin 22 pg (28-32); Mean Corpuscular Volume 68 fl (79-97)
--- NOTE | 2017-01-03 08:48 | Emergency Department Report ---
HPI - General Chief Complaint: Dyspnea/Respdistress Time Seen by Provider: 01/03/17 08:21 - HPI HPI: Room 23 The patient is a 51-year-old female presenting with a chief complaint of fatigue in dyspnea on exertion. The patient states she came to the hospital because she "still having an irregular heartbeat." The patient admits to intermittent chest pain for several weeks sometimes she'll shortness breath and nausea. Patient admits to dyspnea on exertion. The patient was admitted to the hospital by myself for these complaints approximately 2 weeks ago. Patient had a stress test which was normal. Patient had a normal thyroid panel as well as proBNP ultrasound revealed an EF of 60%. The patient states she continues to have his symptoms and wants "to be checked for depression." Patient denies suicidal ideation Location: See above, mental state Duration: [see above] Quality: Fatigue Severity: Moderate Modifying factors: [see above] Context: [see above] Mode of transportation: [not driving] ED Past Medical Hx - Past Medical History Hx Hypertension: Yes Additional medical history: ANEMIA, HEART MURMUR, FIBROIDS - Surgical History Additional Surgical History: RIGHT EYE LASER SURGERY 03/25/15 - Family History Family history: no significant - Social History Smoking Status: Never Smoker Substance Use Type: None - Medications Home Medications: Home Medications Medication Instructions Recorded Confirmed Last Taken Type Brimonidine Tartrate [Alphagan P 1 drop OU Q8HR 03/26/15 01/03/17 1 Day Ago History 0.1%] 10 Ferrous Sulfate [Feosol 325 MG tab] 325 mg PO BID 03/26/15 01/03/17 1 Day Ago History 325 Ketorolac Ophth Soln (Nf) [Acular 1 drop OP QID 03/26/15 01/03/17 1 Day Ago History Ophth Soln 0.5%] 1 Potassium Gluconate 595 mg PO DAILY 03/26/15 01/03/17 1 Day Ago History 595 amLODIPine [Norvasc] 5 mg PO DAILY 03/26/15 01/03/17 1 Day Ago History 5 Pantoprazole [Protonix TAB] 20 mg PO BID #60 tablet. 03/28/15 01/03/17 1 Day Ago Rx 20 hydrOXYzine PAMOATE [Vistaril] 25 mg PO Q6HR PRN #14 capsule 01/03/17 Unknown Rx ED Review of Systems ROS: Stated complaint: POSS ELEVATED HEART RATE Other details as noted in HPI Comment: All other systems reviewed and negative Constitutional: malaise Eyes: denies: eye pain, eye discharge, vision change ENT: denies: ear pain, throat pain Respiratory: shortness of breath, SOB with exertion Cardiovascular: chest pain Endocrine: no symptoms reported Gastrointestinal: nausea. denies: abdominal pain, vomiting, diarrhea Genitourinary: denies: urgency, dysuria, discharge Musculoskeletal: denies: back pain, joint swelling, arthralgia Skin: denies: rash, lesions Neurological: denies: headache, weakness, paresthesias Psychiatric: depression Hematological/Lymphatic: denies: easy bleeding, easy bruising Physical Exam - Physical Exam Vital Signs: Vital Signs 01/03/17 01/03/17 01/03/17 00:14 06:16 06:18 Temperature 98.7 F Pulse Rate 87 78 Respiratory 16 16 Rate Blood Pressure 163/95 Blood Pressure 166/78 [Left] O2 Sat by Pulse 99 100 100 Oximetry 01/03/17 07:14 Temperature 97.8 F Pulse Rate 71 Respiratory 14 Rate Blood Pressure Blood Pressure 153/75 [Left] O2 Sat by Pulse 100 Oximetry Physical Exam: GENERAL: The patient is well-developed well-nourished female lying on stretcher not appearing to be in acute distress. [] HEENT: Normocephalic. Atraumatic. Extraocular motions are intact. Patient has moist mucous membranes. NECK: Supple. Trachea midline CHEST/LUNGS: Clear to auscultation. There is no respiratory distress noted. HEART/CARDIOVASCULAR: Regular. There is no tachycardia. There is no gallop rub or murmur. ABDOMEN: Abdomen is soft, nontender. Patient has normal bowel sounds. There is no abdominal distention. SKIN: There is no rash. There is no edema. There is no diaphoresis. NEURO: The patient is awake, alert, and oriented. The patient is cooperative. The patient has no focal neurologic deficits. The patient has normal speech MUSCULOSKELETAL: There is no evidence of acute injury. ED Course Vital Signs 01/03/17 01/03/17 01/03/17 00:14 06:16 06:18 Temperature 98.7 F Pulse Rate 87 78 Respiratory 16 16 Rate Blood Pressure 163/95 Blood Pressure 166/78 [Left] O2 Sat by Pulse 99 100 100 Oximetry 01/03/17 07:14 Temperature 97.8 F Pulse Rate 71 Respiratory 14 Rate Blood Pressure Blood Pressure 153/75 [Left] O2 Sat by Pulse 100 Oximetry - Consultations Consultation #1: 01/03/17 12:47 Case discussed with mental health worker Eric. Jacobs patient does not meet inpatient criteria and will be given referrals for outpatient treatment last evaluation ED Medical Decision Making - Lab Data Result diagrams: 01/03/17 00:29 01/03/17 00:29 Laboratory Tests 01/03/17 01/03/17 01/03/17 00:29 00:29 03:02 WBC 9.1 RBC 4.58 Hgb 9.9 L Hct 31.3 MCV 68 L MCH 22 L MCHC 32 RDW 18.2 H Plt Count 410 Lymph % (Auto) 15.3 [place] % (Auto) 5.1 Eos % (Auto) 0.5 Baso % (Auto) 0.5 Lymph # 1.4 [place] # 0.5 Eos # 0.0 Baso # 0.0 Seg Neutrophils % 78.6 H Seg Neutrophils # 7.2 D-Dimer Sodium 136 L Potassium 3.7 Chloride 98.0 Carbon Dioxide 22 Anion Gap 20 BUN 10 Creatinine 0.7 Estimated GFR > 60 BUN/Creatinine Ratio 14.28 Glucose 107 H Calcium 9.0 Troponin T < 0.010 < 0.010 01/03/17 01/03/17 05:55 08:46 WBC RBC Hgb Hct MCV MCH MCHC RDW Plt Count Lymph % (Auto) [place] % (Auto) Eos % (Auto) Baso % (Auto) Lymph # [place] # Eos # Baso # Seg Neutrophils % Seg Neutrophils # D-Dimer 245.98 H Sodium Potassium Chloride Carbon Dioxide Anion Gap BUN Creatinine Estimated GFR BUN/Creatinine Ratio Glucose Calcium Troponin T < 0.010 - EKG Data -: EKG Interpreted by Me EKG shows normal: sinus rhythm Rate: normal - EKG Data When compared to previous EKG there are: no significant change Interpretation: unchanged when compared t (12/15/2016) - Differential Diagnosis depression, malingering, PE Critical care attestation.: If time is entered above; I have spent that time in minutes in the direct care of this critically ill patient, excluding procedure time. ED Disposition Clinical Impression: Anxiety Disposition: DISCHARGED TO HOME OR SELFCARE Is pt being admited?: No Does the pt Need Aspirin: No Condition: Stable Instructions: Anxiety (ED) Additional Instructions: Return to the emergency department immediately should you develop worsening symptoms, fever, inability to tolerate food or liquid or any other concerns. Prescriptions: hydrOXYzine PAMOATE [Vistaril] 25 mg PO Q6HR PRN #14 capsule PRN Reason: Anxiety Referrals: PRIMARY CARE, [Primary Care Provider] - 3-5 Days [facility] [Outside] - 3-5 Days Time of Disposition: 12:47
[2017-01-03 13:14] VITALS: BP 123/57
== END 2017-01-03 13:14 | disposition home or self-care (01) ==
LOC: ED 00:08
DX: F41.9 Anxiety disorder, unspecified (principal); D64.9 Anemia, unspecified; I10 Essential (primary) hypertension
CPT/HCPCS: 36415; 80048; 84484; 85025; 85379; 93005; 93010

== ENCOUNTER 2019-03-04 23:12 | Emergency (ER) | payer OTHER ==
[2019-03-05 00:48] VITALS: BP 145/79
--- NOTE | 2019-03-05 00:52 | Emergency Department Report ---
ED General Adult HPI - General Chief complaint: Overdose Stated complaint: TOOK TOO MUCH BP MEDICATION Time Seen by Provider: 03/05/19 00:00 Source: patient Mode of arrival: Ambulatory Limitations: No Limitations - History of Present Illness Initial comments: 53-year-old female presents to the ED because she took an actual dose of her amlodipine 5 mg. Patient took first dose at approximately 6:30, then took another dose around 10 PM. At 10 PM patient thought she was taking her metformin. -: This evening Associated Symptoms: denies: confusion, chest pain, nausea/vomiting - Related Data Home Medications Medication Instructions Recorded Confirmed Last Taken Brimonidine Tartrate [Alphagan P 1 drop OU Q8HR 03/26/15 01/03/17 1 Day Ago 0.1%] ~01/02/17 10 Ferrous Sulfate [Feosol 325 MG tab] 325 mg PO BID 03/26/15 01/03/17 1 Day Ago ~01/02/17 325 Ketorolac Ophth Soln (Nf) [Acular 1 drop OP QID 03/26/15 01/03/17 1 Day Ago Ophth Soln 0.5%] ~01/02/17 1 Potassium Gluconate 595 mg PO DAILY 03/26/15 01/03/17 1 Day Ago ~01/02/17 595 amLODIPine [Norvasc] 5 mg PO DAILY 03/26/15 01/03/17 1 Day Ago ~01/02/17 5 Previous Rx's Medication Instructions Recorded Last Taken Type Pantoprazole [Protonix TAB] 20 mg PO BID #60 tablet. 03/28/15 1 Day Ago Rx ~01/02/17 20 hydrOXYzine PAMOATE [Vistaril] 25 mg PO Q6HR PRN #14 capsule 01/03/17 Unknown Rx metFORMIN XR [Glucophage XR] 500 mg PO BID #60 tab 03/05/19 Unknown Rx Allergies Allergy/AdvReac Type Severity Reaction Status Date / Time regadenoson [From Lexiscan] Allergy Intermediate Hives Verified 03/27/15 20:17 aspirin Allergy Nausea Verified 03/26/15 21:24 codeine Allergy Dizziness Verified 03/26/15 21:24 Iodinated Contrast- Oral and Allergy Unknown Verified 03/04/19 23:21 IV Dye naproxen sodium [From Aleve] Allergy Hives Verified 01/03/17 00:13 Penicillins Allergy Unknown Verified 03/26/15 21:24 Sulfa (Sulfonamide Allergy Hives Verified 01/03/17 00:13 Antibiotics) tramadol Allergy Hives Verified 01/03/17 00:13 ED Review of Systems ROS: Stated complaint: TOOK TOO MUCH BP MEDICATION Other details as noted in HPI Comment: All other systems reviewed and negative Respiratory: denies: shortness of breath Cardiovascular: denies: chest pain Neurological: denies: vertigo ED Past Medical Hx - Past Medical History Previous Medical History?: Yes Hx Hypertension: Yes Hx Diabetes: Yes Hx Psychiatric Treatment: Yes (depression, anxiety) Additional medical history: ANEMIA, HEART MURMUR, FIBROIDS - Surgical History Past Surgical History?: Yes Additional Surgical History: RIGHT EYE LASER SURGERY 03/25/15 - Social History Smoking Status: Never Smoker Substance Use Type: None - Medications Home Medications: Home Medications Medication Instructions Recorded Confirmed Last Taken Type Brimonidine Tartrate [Alphagan P 1 drop OU Q8HR 03/26/15 01/03/17 1 Day Ago History 0.1%] ~01/02/17 10 Ferrous Sulfate [Feosol 325 MG tab] 325 mg PO BID 03/26/15 01/03/17 1 Day Ago History ~01/02/17 325 Ketorolac Ophth Soln (Nf) [Acular 1 drop OP QID 03/26/15 01/03/17 1 Day Ago History Ophth Soln 0.5%] ~01/02/17 1 Potassium Gluconate 595 mg PO DAILY 03/26/15 01/03/17 1 Day Ago History ~01/02/17 595 amLODIPine [Norvasc] 5 mg PO DAILY 03/26/15 01/03/17 1 Day Ago History ~01/02/17 5 Pantoprazole [Protonix TAB] 20 mg PO BID #60 tablet. 03/28/15 01/03/17 1 Day Ago Rx ~01/02/17 20 hydrOXYzine PAMOATE [Vistaril] 25 mg PO Q6HR PRN #14 capsule 01/03/17 Unknown Rx metFORMIN XR [Glucophage XR] 500 mg PO BID #60 tab 03/05/19 Unknown Rx ED Physical Exam - General Limitations: No Limitations General appearance: alert, in no apparent distress - Head Head exam: Present: atraumatic, normocephalic - Eye Eye exam: Present: normal appearance - ENT ENT exam: Present: mucous membranes moist - Neck Neck exam: Present: normal inspection - Respiratory Respiratory exam: Present: normal lung sounds bilaterally. Absent: respiratory distress - Cardiovascular Cardiovascular Exam: Present: regular rate, normal rhythm - GI/Abdominal GI/Abdominal exam: Present: soft. Absent: distended, tenderness - Extremities Exam Extremities exam: Present: normal inspection - Neurological Exam Neurological exam: Present: alert, oriented X3, CN II-XII intact. Absent: motor sensory deficit - Psychiatric Psychiatric exam: Present: normal affect, normal mood - Skin Skin exam: Present: warm, dry, intact, normal color ED Course Vital Signs 03/04/19 03/05/19 03/05/19 23:20 00:08 00:15 Temperature 98.4 F Pulse Rate 91 H 86 79 Respiratory 18 18 24 Rate Blood Pressure 214/92 156/72 O2 Sat by Pulse 98 96 Oximetry 03/05/19 03/05/19 00:30 00:45 Temperature Pulse Rate 80 77 Respiratory 19 19 Rate Blood Pressure 144/71 145/79 O2 Sat by Pulse 100 Oximetry ED Medical Decision Making - Medical Decision Making - pt took one extra amlodipine for a total of 10 mg - vitals stable, pt asymptomatic - will d/c home Critical care attestation.: If time is entered above; I have spent that time in minutes in the direct care of this critically ill patient, excluding procedure time. ED Disposition Clinical Impression: Accidental overdose Disposition: DC-01 TO HOME OR SELFCARE Is pt being admited?: No Condition: Stable Prescriptions: metFORMIN XR [Glucophage XR] 500 mg PO BID #60 tab Referrals: CIELO OROPEZA MD [Primary Care Provider] - 3-5 Days [facility] [Outside] - 3-5 Days Time of Disposition: 00:52
== END 2019-03-05 01:01 | disposition home or self-care (01) ==
LOC: ED 23:12
DX: T48.6X1A Poisoning by antiasthmatics, accidental (unintentional), initial encounter (principal); I10 Essential (primary) hypertension; E11.9 Type 2 diabetes mellitus without complications; F32.9 Major depressive disorder, single episode, unspecified; F41.9 Anxiety disorder, unspecified; D64.9 Anemia, unspecified; Z98.890 Other specified postprocedural states; Z79.84 Long term (current) use of oral hypoglycemic drugs; Z88.8 Allergy status to other drugs, medicaments and biological substances; Z88.6 Allergy status to analgesic agent; Z88.5 Allergy status to narcotic agent; Z88.2 Allergy status to sulfonamides; Z88.0 Allergy status to penicillin; Z91.041 Radiographic dye allergy status; Y92.89 Other specified places as the place of occurrence of the external cause

== ENCOUNTER 2019-07-18 21:16 | Emergency (ER) | payer SELFPAY ==
--- NOTE | 2019-07-18 21:23 | Emergency Department Report ---
Blank Doc - Documentation Documentation: 53-year-old female that presents with irregular heart beats and CP with SOB. This initial assessment/diagnostic orders/clinical plan/treatment(s) is/are subject to change based on patient's health status, clinical progression and re- assessment by fellow clinical providers in the ED. Further treatment and workup at subsequent clinical providers discretion. Patient/guardians urged not to elope from the ED as their condition may be serious if not clinically assessed and managed. Initial orders include: 1- Patient sent to [facility] for further evaluation and treatment 2- labs 3- CXR 4- EKG
[2019-07-18] MEDS ORDERED: dilTIAZem 25 MG/5 ML INJ ONE (22:04)
[2019-07-18] MEDS ORDERED: SODIUM CHLORIDE 0.9% 250ML 250 ML IV ONE (22:08)
--- NOTE | 2019-07-18 22:09 | Emergency Department Report ---
ED General Adult HPI - General Chief complaint: Chest Pain Stated complaint: IRREGULAR HEART RATE Time Seen by Provider: 07/18/19 21:22 Source: patient, RN notes reviewed, old records reviewed Mode of arrival: Ambulatory Limitations: No Limitations - History of Present Illness Initial comments: This is a 53-year-old female. This patient is not known to this provider previously. She does not have a local primary care doctor currently. The patient reports that she is not . The patient presents to the ER with a complaint of painless heart racing and palpitations. This started at 12:00 PM. The symptoms are now resolved. She denies DVT and pulmonary embolism risk factors. She denies stimulant consumption, with the exception of decaffeinated tea. She reports that she can tolerate aspirin, although it "upsets her stomach." She had a negative cardiac stress test at this hospital in 2017. -: Sudden, hour(s) Consistency: now resolved Improves with: none Worsens with: none - Related Data Home Medications Medication Instructions Recorded Confirmed Last Taken Brimonidine Tartrate [Alphagan P 1 drop OU Q8HR 03/26/15 01/03/17 1 Day Ago 0.1%] ~01/02/17 10 Ferrous Sulfate [Feosol 325 MG tab] 325 mg PO BID 03/26/15 01/03/17 1 Day Ago ~01/02/17 325 Ketorolac Ophth Soln (Nf) [Acular 1 drop OP QID 03/26/15 01/03/17 1 Day Ago Ophth Soln 0.5%] ~01/02/17 1 Potassium Gluconate 595 mg PO DAILY 03/26/15 01/03/17 1 Day Ago ~01/02/17 595 amLODIPine 5 mg PO DAILY 03/26/15 01/03/17 1 Day Ago ~01/02/17 5 Previous Rx's Medication Instructions Recorded Last Taken Type Pantoprazole [Protonix TAB] 20 mg PO BID #60 tablet. 03/28/15 1 Day Ago Rx ~01/02/17 20 hydrOXYzine PAMOATE [Vistaril] 25 mg PO Q6HR PRN #14 capsule 01/03/17 Unknown Rx metFORMIN XR [Glucophage XR] 500 mg PO BID #60 tab 03/05/19 Unknown Rx Aspirin [Aspirin BABY CHEW TAB] 81 mg PO QDAY #30 tab.chew 07/18/19 Unknown Rx Metoprolol [Lopressor TAB] 25 mg PO BID #30 tablet 07/18/19 Unknown Rx Allergies Allergy/AdvReac Type Severity Reaction Status Date / Time regadenoson [From Lexiscan] Allergy Intermediate Hives Verified 07/18/19 22:11 aspirin Allergy Nausea Verified 07/18/19 22:11 codeine Allergy Dizziness Verified 07/18/19 22:11 Iodinated Contrast Media Allergy Unknown Verified 07/18/19 22:11 [Iodinated Contrast- Oral and IV Dye] naproxen sodium [From Aleve] Allergy Hives Verified 07/18/19 22:11 Penicillins Allergy Unknown Verified 07/18/19 22:11 Sulfa (Sulfonamide Allergy Hives Verified 07/18/19 22:11 Antibiotics) tramadol Allergy Hives Verified 07/18/19 22:11 ED Review of Systems ROS: Stated complaint: IRREGULAR HEART RATE Other details as noted in HPI Constitutional: denies: fever Eyes: denies: eye discharge ENT: denies: congestion Respiratory: denies: shortness of breath, wheezing Cardiovascular: palpitations. denies: syncope Gastrointestinal: denies: nausea, vomiting Genitourinary: denies: dysuria Musculoskeletal: denies: back pain Skin: denies: lesions Neurological: denies: weakness Psychiatric: anxiety Hematological/Lymphatic: denies: easy bleeding ED Past Medical Hx - Past Medical History Previous Medical History?: Yes Hx Hypertension: Yes Hx Diabetes: Yes Hx Psychiatric Treatment: Yes (depression, anxiety) Additional medical history: ANEMIA, HEART MURMUR, FIBROIDS - Surgical History Past Surgical History?: Yes Additional Surgical History: RIGHT EYE LASER SURGERY 03/25/15 - Social History Smoking Status: Never Smoker Substance Use Type: None - Medications Home Medications: Home Medications Medication Instructions Recorded Confirmed Last Taken Type Brimonidine Tartrate [Alphagan P 1 drop OU Q8HR 03/26/15 01/03/17 1 Day Ago H istory 0.1%] ~01/02/17 10 Ferrous Sulfate [Feosol 325 MG tab] 325 mg PO BID 03/26/15 01/03/17 1 Day Ago History ~01/02/17 325 Ketorolac Ophth Soln (Nf) [Acular 1 drop OP QID 03/26/15 01/03/17 1 Day Ago History Ophth Soln 0.5%] ~01/02/17 1 Potassium Gluconate 595 mg PO DAILY 03/26/15 01/03/17 1 Day Ago History ~01/02/17 595 amLODIPine 5 mg PO DAILY 03/26/15 01/03/17 1 Day Ago History ~01/02/17 5 Pantoprazole [Protonix TAB] 20 mg PO BID #60 tablet. 03/28/15 01/03/17 1 Day Ago Rx ~01/02/17 20 hydrOXYzine PAMOATE [Vistaril] 25 mg PO Q6HR PRN #14 capsule 01/03/17 Unknown Rx metFORMIN XR [Glucophage XR] 500 mg PO BID #60 tab 03/05/19 Unknown Rx Aspirin [Aspirin BABY CHEW TAB] 81 mg PO QDAY #30 tab.chew 07/18/19 Unknown Rx Metoprolol [Lopressor TAB] 25 mg PO BID #30 tablet 07/18/19 Unknown Rx ED Physical Exam - General Limitations: No Limitations General appearance: alert, in no apparent distress, anxious, obese - Head Head exam: Present: atraumatic, normocephalic - Eye Eye exam: Present: normal appearance, EOMI. Absent: nystagmus - ENT ENT exam: Present: normal exam, normal orophraynx, mucous membranes moist, normal external ear exam - Neck Neck exam: Present: normal inspection, full ROM. Absent: tenderness, meningismus - Respiratory Respiratory exam: Present: normal lung sounds bilaterally. Absent: respiratory distress - Cardiovascular Cardiovascular Exam: Present: regular rate, normal rhythm, normal heart sounds. Absent: bradycardia, tachycardia, irregular rhythm, systolic murmur, diastolic murmur, rubs, gallop - GI/Abdominal GI/Abdominal exam: Present: soft. Absent: distended, tenderness, guarding, rebound, rigid, pulsatile mass - Extremities Exam Extremities exam: Present: normal inspection, full ROM, other (2+ pulses noted in the bilateral upper, lower extremities. There is no long bone tenderness. Musculoskeletal compartments are soft. The pelvis is stable.). Absent: pedal edema, calf tenderness - Back Exam Back exam: Present: normal inspection, full ROM. Absent: tenderness, CVA tenderness (R), CVA tenderness (L), paraspinal tenderness, vertebral tenderness - Neurological Exam Neurological exam: Present: alert, oriented X3, other (there is no facial droop. The tongue is midline. Extraocular movements are intact bilaterally. Patient speaking in full complete sentences. Shoulder shrug is intact bilaterally. Hearing is grossly intact bilaterally. Visual acuity intact to finger counting and color perception at a close distance. 5/5 strength 4 extremities. Sensatio n intact to light touch in 4 extremities.). Absent: motor sensory deficit - Psychiatric Psychiatric exam: Present: anxious - Skin Skin exam: Present: warm, dry, intact, normal color. Absent: rash ED Course Vital Signs 07/18/19 07/18/19 07/18/19 21:20 22:02 22:15 Temperature 98.6 F Pulse Rate 88 111 H 94 H Respiratory 18 15 16 Rate Blood Pressure 182/105 157/87 O2 Sat by Pulse 97 98 100 Oximetry 07/18/19 23:10 Temperature Pulse Rate Respiratory Rate Blood Pressure 179/83 O2 Sat by Pulse Oximetry - Reevaluation(s) Reevaluation #1: 07/18/19 23:03 Parental diagnosis, including not limited Paroxysmal A. fib with RVR, paroxysmal A. fib, electrolyte derangement, pneumonia, urinary tract infection, coronary syndrome Assessment and plan: 53-year-old female with resolved A. fib with RVR. She is no longer tachycardic and she is clinically in sinus rhythm at this time. Ini tial EKG suggests A. fib, now she is currently in sinus rhythm. Her EKG today is abnormal, but unchanged from prior. She does not endorse any pain to myself. I find the patient to be low risk for major adverse cardiac event as per the heart score. Patient also at low risk for stroke, as per the chads 2 vasc score She indicates no true allergic reaction/anaphylactic reaction to aspirin. We d iscussed recommendation for aspirin therapy to help prevent future thromboembolic events. She reports a distant history of ulcers, but has not had ulcer symptoms for over 2 decades. She denies bright red blood per rectum. She is in sinus rhythm now, and in no acute distress. Her contact information will be transmitted to [facility] cardiology, and aspirin this hospital's protocol and policy, she can be contacted with a close outpatient expedited appointment to complete her outpatient evaluation. Discussed this with the patient and family, who verbalizes understanding. Reevaluation #2: 07/18/19 23:11 ekg #3 shows sinus and unchanged from prior ED Medical Decision Making - Lab Data Result diagrams: 07/18/19 21:30 07/18/19 21:30 Vital Signs 07/18/19 21:20 Temperature 98.6 F Pulse Rate 88 Respiratory 18 Rate Blood Pressure 182/105 O2 Sat by Pulse 97 Oximetry Lab Results 07/18/19 07/18/19 07/18/19 Range/Units 21:30 21:30 21:30 WBC 8.1 (4.5-11.0) K/mm3 RBC 5.13 H (3.65-5.03) M/mm3 Hgb 10.6 (10.1-14.3) gm/dl Hct 32.0 (30.3-42.9) % MCV 62 L (79-97) fl MCH 21 L (28-32) pg MCHC 33 (30-34) % RDW 19.6 H (13.2-15.2) % Plt Count 303 (140-440) K/mm3 Lymph % (Auto) 31.1 (13.4-35.0) % [place] % (Auto) 8.6 H (0.0-7.3) % Eos % (Auto) 6.1 H (0.0-4.3) % Baso % (Auto) [employer] Supervisor Lymph # 2.5 (1.2-5.4) K/mm3 [place] # 0.7 (0.0-0.8) K/mm3 Eos # 0.5 H (0.0-0.4) K/mm3 Baso # 0.1 (0.0-0.1) K/mm3 Seg Neutrophils % 52.7 (40.0-70.0) % Seg Neutrophils # 4.3 (1.8-7.7) K/mm3 PT 12.6 (12.2-14.9) Sec. INR 0.95 (0.87-1.13) APTT 24.5 (24.2-36.6) Sec. Sodium 134 L (137-145) mmol/L Potassium 4.6 (3.6-5.0) mmol/L Chloride 100.4 (98-107) mmol/L Carbon Dioxide 20 L (22-30) mmol/L Anion Gap 18 mmol/L BUN 15 (7-17) mg/dL Creatinine 0.7 (0.7-1.2) mg/dL Estimated GFR > 60 ml/min BUN/Creatinine Ratio 21 % Glucose 221 H (65-100) mg/dL Calcium 9.0 (8.4-10.2) mg/dL Total Bilirubin 0.20 (0.1-1.2) mg/dL AST 16 (5-40) units/L ALT 15 (7-56) units/L Alkaline Phosphatase 113 (35-129) units/L Troponin T < 0.010 (0.00-0.029) ng/mL Total Protein 8.2 (6.3-8.2) g/dL Albumin 4.1 (3.9-5) g/dL Albumin/Globulin Ratio 1.0 % Urine Color (Yellow) Urine Turbidity (Clear) Urine pH (5.0-7.0) Ur Specific [place] (1.003-1.030) Urine Protein (Negative) mg/dL Urine Glucose (UA) (Negative) mg/dL Urine Ketones (Negative) mg/dL Urine Blood (Negative) Urine Nitrite (Negative) Urine Bilirubin (Negative) Urine Urobilinogen (<2.0) mg/dL Ur Leukocyte Esterase (Negative) Urine WBC (Auto) (0.0-6.0) /HPF Urine RBC (Auto) (0.0-6.0) /HPF U Epithel Cells (Auto) (0-13.0) /HPF Urine Bacteria (Auto) (Negative) /HPF Urine Yeast (Budding) /HPF 07/18/19 Range/Units 22:20 WBC (4.5-11.0) K/mm3 RBC (3.65-5.03) M/mm3 Hgb (10.1-14.3) gm/dl Hct (30.3-42.9) % MCV (79-97) fl MCH (28-32) pg MCHC (30-34) % RDW (13.2-15.2) % Plt Count (140-440) K/mm3 Lymph % (Auto) (13.4-35.0) % [place] % (Auto) (0.0-7.3) % Eos % (Auto) (0.0-4.3) % Baso % (Auto) Lymph # (1.2-5.4) K/mm3 [place] # (0.0-0.8) K/mm3 Eos # (0.0-0.4) K/mm3 Baso # (0.0-0.1) K/mm3 Seg Neutrophils % (40.0-70.0) % Seg Neutrophils # (1.8-7.7) K/mm3 PT (12.2-14.9) Sec. INR (0.87-1.13) APTT (24.2-36.6) Sec. Sodium (137-145) mmol/L Potassium (3.6-5.0) mmol/L Chloride (98-107) mmol/L Carbon Dioxide (22-30) mmol/L Anion Gap mmol/L BUN (7-17) mg/dL Creatinine (0.7-1.2) mg/dL Estimated GFR ml/min BUN/Creatinine Ratio % Glucose (65-100) mg/dL Calcium (8.4-10.2) mg/dL Total Bilirubin (0.1-1.2) mg/dL AST (5-40) units/L ALT (7-56) units/L Alkaline Phosphatase (35-129) units/L Troponin T (0.00-0.029) ng/mL Total Protein (6.3-8.2) g/dL Albumin (3.9-5) g/dL Albumin/Globulin Ratio % Urine Color Straw (Yellow) Urine Turbidity Clear (Clear) Urine pH 6.0 (5.0-7.0) Ur Specific [place] 1.012 (1.003-1.030) Urine Protein >500 (Negative) mg/dL Urine Glucose (UA) >=500 (Negative) mg/dL Urine Ketones Neg (Negative) mg/dL Urine Blood Sm (Negative) Urine Nitrite Neg (Negative) Urine Bilirubin Neg (Negative) Urine Urobilinogen < 2.0 (<2.0) mg/dL Ur Leukocyte Esterase Neg (Negative) Urine WBC (Auto) 2.0 (0.0-6.0) /HPF Urine RBC (Auto) 2.0 (0.0-6.0) /HPF U Epithel Cells (Auto) < 1.0 (0-13.0) /HPF Urine Bacteria (Auto) 1+ (Negative) /HPF Urine Yeast (Budding) Few /HPF - EKG Data -: EKG Interpreted by Nc - EKG Data 07/18/19 23:06 EKG #1 shows what appears to be a left axis deviation, atrial fibrillation versus flutter, QTC 440 ms, low voltage, sinus process, EKG is abnormal, it is not consistent with ST elevation myocardial infarction EKG #2 shows a sinus rhythm, left axis deviation, borderline left anterior fascicular block, there is low voltage, the EKG is abnormal, it is unchanged from prior EKG from 06/17/2017. - Radiology Data Radiology results: pending, report reviewed, image reviewed X-ray of the chest is negative for acute disease Critical care attestation.: If time is entered above; I have spent that time in minutes in the direct care of this critically ill patient, excluding procedure time. ED Disposition Clinical Impression: Palpitations, Abnormal EKG Disposition: - TO HOME OR SELFCARE Is pt being admited?: No Does the pt Need Aspirin: No Condition: Stable Additional Instructions: Avoid consumption of stimulants, such as Needed beverages, energy drinks. Take aspirin on a daily basis as recommended. Follow up with her primary care doctor or any of the cardiology physicians within the next 5-7 days. Laboratory studies demonstrated incidental nonemergent findings which should be followed up by a primary care doctor within the next month. Recommend physical activities a s tolerated, weight loss, modification of diet to avoid simple carbohydrates, sugary substances, and patient should consume lean protein, and green vegetables. Return to the emergency room right away with new, worsened, different symptoms, or symptoms not present on the initial emergency room evaluation. Prescriptions: Aspirin [Aspirin BABY CHEW TAB] 81 mg PO QDAY #30 tab.chew Metoprolol [Lopressor TAB] 25 mg PO BID #30 tablet Referrals: TIFFANY CUNHA MD [Primary Care Provider] - 3-5 Days DANIAL HUIZAR MD [Staff Physician] - 3-5 Days LORY MAGALLON MD [Staff Physician] - 3-5 Days [facility] [Provider Group] - 3-5 Days [facility] [Provider Group] - 3-5 Days
[2019-07-18 22:29] LABS: Basophils # (Auto) 0.1 K/mm3 (0.0-0.1); Eosinophils # (Auto) 0.5 K/mm3 (0.0-0.4); Eosinophils % (Auto) 6.1 % (0.0-4.3); Hemoglobin 10.6 gm/dl (10.1-14.3); Lymphocytes # (Auto) 2.5 K/mm3 (1.2-5.4); Lymphocytes % (Auto) 31.1 % (13.4-35.0); Mean Corpuscular HGB Conc 33 % (30-34); Mean Corpuscular Volume 62 fl (79-97); Monocytes # (Auto) 0.7 K/mm3 (0.0-0.8); Monocytes % (Auto) 8.6 % (0.0-7.3); Platelet Count 303 K/mm3 (140-440); Red Blood Count 5.13 M/mm3 (3.65-5.03); Red Cell Distribution Width 19.6 % (13.2-15.2)
--- NOTE | 2019-07-18 22:29 | XRay Report ---
CHEST 2 VIEWS INDICATION: Chest Pain. COMPARISON: 12/15/2016 FINDINGS: Support devices: None. Heart: Within normal limits. Lungs: No acute air space or interstitial disease. Pleura: No significant pleural effusion. No pneumothorax. Additional findings: None. IMPRESSION: 1. No acute findings. Signer Name: Van Gudino MD Signed: 07/18/2019 10:24 PM Workstation Name: [id number]
[2019-07-18 22:38] LABS: Alanine Aminotransferase 15 units/L (7-56); Albumin 4.1 g/dL (3.9-5); BUN/Creatinine Ratio 21; Blood Urea Nitrogen 15 mg/dL (7-17); Hemolysis Index 13
[2019-07-18 22:40] LABS: INR 0.95 (0.87-1.13)
[2019-07-18 22:41] LABS: Partial Thromboplastin Time 24.5 Sec. (24.2-36.6)
[2019-07-18 22:57] LABS: Bacteria,Urine 1+ /HPF (Negative); Bilirubin,Urine NEG (Negative); Blood,Urine SM (Negative); Color,Urine Straw (Yellow); Urobilinogen,Urine < 2.0 mg/dL (<2.0)
[2019-07-18 22:59] LABS: Protein,Urine >500 mg/dL (Negative)
[2019-07-18 23:20] VITALS: BP 179/83
== END 2019-07-19 01:07 | disposition home or self-care (01) ==
LOC: ED 21:16
DX: R00.2 Palpitations (principal); R94.31 Abnormal electrocardiogram [ECG] [EKG]; I10 Essential (primary) hypertension; E11.9 Type 2 diabetes mellitus without complications; F41.9 Anxiety disorder, unspecified; F31.9 Bipolar disorder, unspecified
CPT/HCPCS: 36415; 71046; 80053; 81001; 82550; 83735; 84443; 84484; 85025; 85610; 85730; 93005; 93010; 99284; J7050

== ENCOUNTER 2019-08-05 09:23 | Observation (INO) | payer SELFPAY ==
[2019-08-05] MEDS ORDERED: ONDANSETRON 4 MG/2 ML INJ IV ONE (10:06)
[2019-08-05] MEDS ORDERED: MORPHINE 4 MG/1 ML INJ IV ONE (10:06)
--- NOTE | 2019-08-05 10:13 | Emergency Department Report ---
HPI - General Chief Complaint: Arrhythmia/Palpitations Time Seen by Provider: 08/05/19 09:52 - HPI HPI: Room 7 The patient is a 53-year-old female presented with a chief complaint chest pain and palpitations. The patient stated for 1 week she's had intermittent chest pain and palpitations. The patient states she has had chest pressure associated with shortness of breath, nausea and diaphoresis. Patient denies vomiting. States she felt near syncopal yesterday and today. Patient currently gets her chest pressure score of 6/10. The patient states she had a stress test in 2017 but has never had a cardiac catheterization Location: [See above] Duration: [See above] Quality: [See above] Severity: [See above] Timing: [See above] Context: [See above] Modifying factors: [See above] Associated signs and symptoms: [see above] ED Past Medical Hx - Past Medical History Hx Hypertension: Yes Hx Diabetes: Yes Hx Psychiatric Treatment: Yes (depression, anxiety) Additional medical history: ANEMIA, HEART MURMUR, FIBROIDS - Surgical History Additional Surgical History: RIGHT EYE LASER SURGERY 03/25/15 - Family History Family history: no significant - Social History Smoking Status: Never Smoker Substance Use Type: None (denies illicit drug use) - Medications Home Medications: Home Medications Medication Instructions Recorded Confirmed Last Taken Type Brimonidine Tartrate [Alphagan P 1 drop OU Q8HR 03/26/15 01/03/17 1 Day Ago History 0.1%] ~01/02/17 10 Ferrous Sulfate [Feosol 325 MG tab] 325 mg PO BID 03/26/15 01/03/17 1 Day Ago History ~01/02/17 325 Ketorolac Ophth Soln (Nf) [Acular 1 drop OP QID 03/26/15 01/03/17 1 Day Ago History Ophth Soln 0.5%] ~01/02/17 1 Potassium Gluconate 595 mg PO DAILY 03/26/15 01/03/17 1 Day Ago History ~01/02/17 595 amLODIPine 5 mg PO DAILY 03/26/15 01/03/17 1 Day Ago History ~01/02/17 5 Pantoprazole [Protonix TAB] 20 mg PO BID #60 tablet. 03/28/15 01/03/17 1 Day Ago Rx ~01/02/17 20 hydrOXYzine PAMOATE [Vistaril] 25 mg PO Q6HR PRN #14 capsule 01/03/17 Unknown Rx metFORMIN XR [Glucophage XR] 500 mg PO BID #60 tab 03/05/19 Unknown Rx Aspirin [Aspirin BABY CHEW TAB] 81 mg PO QDAY #30 tab.chew 07/18/19 Unknown Rx Metoprolol [Lopressor TAB] 25 mg PO BID #30 tablet 07/18/19 Unknown Rx ED Review of Systems ROS: Stated complaint: CHEST PAIN Other details as noted in HPI Constitutional: denies: diaphoresis Eyes: denies: eye pain ENT: denies: throat pain Respiratory: shortness of breath Cardiovascular: chest pain, palpitations Gastrointestinal: nausea. denies: vomiting Genitourinary: denies: dysuria Musculoskeletal: denies: back pain Neurological: denies: headache Physical Exam - Physical Exam Vital Signs: Vital Signs 08/05/19 09:44 Temperature 98.9 F Pulse Rate 81 Respiratory 12 Rate Blood Pressure 171/81 O2 Sat by Pulse 98 Oximetry Physical Exam: GENERAL: The patient is well-developed well-nourished female lying on stretcher not appearing to be in acute distress. [] HEENT: Normocephalic. Atraumatic. Extraocular motions are intact. Patient has moist mucous membranes. NECK: Supple. Regular midline CHEST/LUNGS: Clear to auscultation. There is no respiratory distress noted. HEART/CARDIOVASCULAR: Regular. There is no tachycardia. There is no gallop rub or murmur. ABDOMEN: Abdomen is soft, nontender. Patient has normal bowel sounds. There is no abdominal distention. SKIN: There is no rash. There is no edema. There is no diaphoresis. NEURO: The patient is awake, alert, and oriented. The patient is cooperative. The patient has normal speech MUSCULOSKELETAL: There is no evidence of acute injury. ED Course Vital Signs 08/05/19 09:44 Temperature 98.9 F Pulse Rate 81 Respiratory 12 Rate Blood Pressure 171/81 O2 Sat by Pulse 98 Oximetry ED Medical Decision Making - Lab Data Result diagrams: 08/05/19 10:25 08/05/19 09:55 Laboratory Tests 08/05/19 08/05/19 08/05/19 09:55 10:25 10:25 WBC 7.1 RBC 5.27 H Hgb 10.1 Hct 32.7 MCV 62 L MCH 19 L MCHC 31 RDW 19.6 H Plt Count 333 Lymph % (Auto) 20.9 [place] % (Auto) 6.8 Eos % (Auto) 2.0 Baso % (Auto) 0.8 Lymph # 1.5 [place] # 0.5 Eos # 0.1 Baso # 0.1 Seg Neutrophils % 69.5 Seg Neutrophils # 4.9 PT 13.5 INR 1.04 APTT 33.7 Sodium 137 Potassium 3.8 Chloride 100.3 Carbon Dioxide 22 Anion Gap 19 BUN 8 Creatinine 0.6 L Estimated GFR > 60 BUN/Creatinine Ratio 13 Glucose 133 H Calcium 9.0 Total Bilirubin 0.30 AST 15 ALT 14 Alkaline Phosphatase 81 Total Creatine Kinase CK-MB (CK-2) CK-MB (CK-2) Rel Index Troponin T Total Protein 8.0 Albumin 4.2 Albumin/Globulin Ratio 1.1 08/05/19 08/05/19 10:25 10:25 WBC RBC Hgb Hct MCV MCH MCHC RDW Plt Count Lymph % (Auto) [place] % (Auto) Eos % (Auto) Baso % (Auto) Lymph # [place] # Eos # Baso # Seg Neutrophils % Seg Neutrophils # PT INR APTT Sodium Potassium Chloride Carbon Dioxide Anion Gap BUN Creatinine Estimated GFR BUN/Creatinine Ratio Glucose Calcium Total Bilirubin AST ALT Alkaline Phosphatase Total Creatine Kinase 81 CK-MB (CK-2) 1.0 CK-MB (CK-2) Rel Index 1.2 Troponin T < 0.010 Total Protein Albumin Albumin/Globulin Ratio - EKG Data -: EKG Interpreted by Me EKG shows normal: sinus rhythm Rate: normal - EKG Data When compared to previous EKG there are: previous EKG unavailable Interpretation: nonspecific ST-T wave gopi (T-wave inversions in leads V2, V3) - Radiology Data Radiology results: report reviewed (chest x-ray), image reviewed (chest x-ray) interpreted by me: Chest x-ray-no focal infiltrate, no pneumothorax [facility] [address] [place] [address] XRay Report Signed Patient: BYRON JIM MR#: [id number] : 1965 Acct:[id number] Age/Sex: 53 / F ADM Date: 08/05/19 Loc: ED Attending Dr: Ordering Physician: BENITEZ ISBELL MD Date of Service: 08/05/19 Procedure(s): XR chest 1V ap Accession Number(s): [id number] cc: BENITEZ ISBELL MD Fluoro Time In Minutes: CHEST 1 VIEW 08/05/2019 10:29 AM INDICATION / CLINICAL INFORMATION: chest pain. COMPARISON: 2 views of the chest from 07/18/2019. FIND INGS: SUPPORT DEVICES: None. HEART / MEDIASTINUM: No significant abnormality. LUNGS / PLEURA: No significant pulmonary or pleural abnormality. No pneumothorax. ADDITIONAL FINDINGS: No significant additional findings. IMPRESSION: 1. No acute abnormality of the chest. Signer Name: Griffin Blanchard MD Signed: 08/05/2019 11:05 AM Workstation Name: [id number] Transcribed By: [place] Dictated By: Griffin Blanchard MD Electronically Authenticated By: Griffin Blanchard MD Signed Date/Time: 08/05/19 110 DD/ 1105 TD/TT: - Differential Diagnosis ACS, pericarditis, GERD, symptomatic anemia Critical care attestation.: If time is entered above; I have spent that time in minutes in the direct care of this critically ill patient, excluding procedure time. ED Disposition Clinical Impression: Chest discomfort Disposition: DC-09 OP ADMIT IP TO THIS HOSP Is pt being admited?: Yes Does the pt Need Aspirin: Yes Condition: Fair Referrals: PRIMARY CAREMD [Primary Care Provider] - 3-5 Days Time of Disposition: 12:21 (Hospitalist paged (Dr Self))
--- NOTE | 2019-08-05 11:09 | XRay Report ---
CHEST 1 VIEW 08/05/2019 10:29 AM INDICATION / CLINICAL INFORMATION: chest pain. COMPARISON: 2 views of the chest from 07/18/2019. FINDINGS: SUPPORT DEVICES: None. HEART / MEDIASTINUM: No significant abnormality. LUNGS / PLEURA: No significant pulmonary or pleural abnormality. No pneumothorax. ADDITIONAL FINDINGS: No significant additional findings. IMPRESSION: 1. No acute abnormality of the chest. Signer Name: Griffin Blanchard MD Signed: 08/05/2019 11:05 AM Workstation Name: [id number]
[2019-08-05 11:11] LABS: Basophils # (Auto) 0.1 K/mm3 (0.0-0.1); Basophils % (Auto) 0.8 % (0.0-1.8); Eosinophils # (Auto) 0.1 K/mm3 (0.0-0.4); Hematocrit 32.7 % (30.3-42.9); Hemoglobin 10.1 gm/dl (10.1-14.3); INR 1.04 (0.87-1.13); Lymphocytes # (Auto) 1.5 K/mm3 (1.2-5.4); Lymphocytes % (Auto) 20.9 % (13.4-35.0); Mean Corpuscular HGB Conc 31 % (30-34); Mean Corpuscular Volume 62 fl (79-97); Monocytes # (Auto) 0.5 K/mm3 (0.0-0.8); Monocytes % (Auto) 6.8 % (0.0-7.3); Platelet Count 333 K/mm3 (140-440); Red Blood Count 5.27 M/mm3 (3.65-5.03); Red Cell Distribution Width 19.6 % (13.2-15.2)
[2019-08-05 11:12] LABS: Partial Thromboplastin Time 33.7 Sec. (24.2-36.6)
[2019-08-05 11:20] LABS: Alanine Aminotransferase 14 units/L (7-56); Albumin 4.2 g/dL (3.9-5); BUN/Creatinine Ratio 13; Blood Urea Nitrogen 8 mg/dL (7-17); Hemolysis Index 3
[2019-08-05] MEDS ORDERED: ACETAMINOPHEN 325 MG TAB PO PRN (12:33)
[2019-08-05] MEDS ORDERED: ONDANSETRON 4 MG/2 ML INJ IV PRN (12:33)
[2019-08-05 14:28] VITALS: BP 161/80
--- NOTE | 2019-08-05 16:41 | Event Note ---
53 YO Female presents to ED for evaluation of chest pain. Pt treated IAW chest pain protocol. Serial cardiac enzymes, EKg, and telemetry were unremarkable. Pt medically optimized and back to usual state of health. Pt instructed to continue all prehospital medication and to f/u with PCP in AM, and to F/U with Cardiology 3-5 days for further care. Pt symptoms consistent with GERD. Pt counseled regarding avoidance of late meals, and to refrain from eating dinner after 7pm. Physical Exam: GENERAL: The patient is well-developed well-nourished female lying on stretcher not appearing to be in acute distress. [] HEENT: Normocephalic. Atraumatic. Extraocular motions are intact. Patient has moist mucous membranes. NECK: Supple. Regular midline CHEST/LUNGS: Clear to auscultation. There is no respiratory distress noted. HEART/CARDIOVASCULAR: Regular. There is no tachycardia. There is no gallop rub or murmur. ABDOMEN: Abdomen is soft, nontender. Patient has normal bowel sounds. There is no abdominal distention. SKIN: There is no rash. There is no edema. There is no diaphoresis. NEURO: The patient is awake, alert, and oriented. The patient is cooperative. The patient has normal speech MUSCULOSKELETAL: There is no evidence of acute injury.
== END 2019-08-05 22:23 | disposition home or self-care (01) ==
LOC: ED 09:23 → 4A 12:33
PROVIDERS: ADMIT Internal Medicine; ATTEND Internal Medicine
DX: R07.89 Other chest pain (principal); K21.9 Gastro-esophageal reflux disease without esophagitis; R00.2 Palpitations; I10 Essential (primary) hypertension; E11.9 Type 2 diabetes mellitus without complications; F32.9 Major depressive disorder, single episode, unspecified; F41.9 Anxiety disorder, unspecified; D64.9 Anemia, unspecified; Z79.82 Long term (current) use of aspirin; Z79.84 Long term (current) use of oral hypoglycemic drugs; Z79.899 Other long term (current) drug therapy
CPT/HCPCS: 36415; 71045; 80053; 82550; 82553; 84484; 85025; 85610; 85730; 93005; 93010; 96374; 99284; G0378; J2405; J2270

== ENCOUNTER 2020-09-09 13:36 | Emergency (ER) | payer MEDICARE ==
[2020-09-09 14:26] VITALS: BP 171/70
--- NOTE | 2020-09-09 15:46 | Emergency Department Report ---
ED ENT HPI - General Chief complaint: Skin/Abscess/Foreign Body Stated complaint: TISSUE STUCK IN EAR,PALPITATIONS, HEADACHE Time Seen by Provider: 09/09/20 15:45 Source: patient Mode of arrival: Ambulatory Limitations: No Limitations - History of Present Illness Initial comments: Patient is a 54-year-old female presents emergency room with complaints of tissue stuck in her right ear that occurred around 1 PM today. She states that she uses a small amount of water and some tissue to clean out her ears but states that the tissue got stuck inside of there. She denies any drainage, hearing changes, anything else getting stuck in the ear. She has a past medical history of hypertension and palpitations. She does see a social service agency director. She states that she was recently started on hydroxyzine but states that it makes her groggy throughout the day and was asking if we could change her sleep medication. - Related Data Home Medications Medication Instructions Recorded Confirmed Last Taken Brimonidine Tartrate [Alphagan P 1 drop OU Q8HR 03/26/15 01/03/17 1 Day Ago 0.1%] ~01/02/17 10 Ferrous Sulfate [Feosol 325 MG tab] 325 mg PO BID 03/26/15 01/03/17 1 Day Ago ~01/02/17 325 Ketorolac Ophth Soln (Nf) [Acular 1 drop OP QID 03/26/15 01/03/17 1 Day Ago Ophth Soln 0.5%] ~01/02/17 1 Potassium Gluconate 595 mg PO DAILY 03/26/15 01/03/17 1 Day Ago ~01/02/17 595 amLODIPine 5 mg PO DAILY 03/26/15 01/03/17 1 Day Ago ~01/02/17 5 Previous Rx's Medication Instructions Recorded Last Taken Type Pantoprazole [Protonix TAB] 20 mg PO BID #60 tablet. 03/28/15 1 Day Ago Rx ~01/02/17 20 hydrOXYzine PAMOATE [Vistaril] 25 mg PO Q6HR PRN #14 capsule 01/03/17 Unknown Rx metFORMIN XR [Glucophage XR] 500 mg PO BID #60 tab 03/05/19 Unknown Rx Aspirin [Aspirin BABY CHEW TAB] 81 mg PO QDAY #30 tab.chew 07/18/19 Unknown Rx Metoprolol [Lopressor TAB] 25 mg PO BID #30 tablet 10/31/19 Unknown Rx Allergies Allergy/AdvReac Type Severity Reaction Status Date / Time regadenoson [From Lexiscan] Allergy Intermediate Hives Verified 09/09/20 14:24 clindamycin Allergy Hives Verified 09/09/20 14:24 codeine Allergy Dizziness Verified 09/09/20 14:24 Iodinated Contrast Media Allergy Unknown Verified 09/09/20 14:24 [Iodinated Contrast- Oral and IV Dye] naproxen sodium [From Aleve] Allergy Hives Verified 09/09/20 14:24 Penicillins Allergy Unknown Verified 09/09/20 14:24 Sulfa (Sulfonamide Allergy Hives Verified 09/09/20 14:24 Antibiotics) tramadol Allergy Hives Verified 09/09/20 14:24 prednisone AdvReac Unknown Verified 09/09/20 14:24 ED Dental HPI - General Chief complaint: Skin/Abscess/Foreign Body Stated complaint: TISSUE STUCK IN EAR,PALPITATIONS, HEADACHE Time Seen by Provider: 09/09/20 15:45 Source: patient Mode of arrival: Ambulatory Limitations: No Limitations - Related Data Home Medications Medication Instructions Recorded Confirmed Last Taken Brimonidine Tartrate [Alphagan P 1 drop OU Q8HR 03/26/15 01/03/17 1 Day Ago 0.1%] ~01/02/17 10 Ferrous Sulfate [Feosol 325 MG tab] 325 mg PO BID 03/26/15 01/03/17 1 Day Ago ~01/02/17 325 Ketorolac Ophth Soln (Nf) [Acular 1 drop OP QID 03/26/15 01/03/17 1 Day Ago Ophth Soln 0.5%] ~01/02/17 1 Potassium Gluconate 595 mg PO DAILY 03/26/15 01/03/17 1 Day Ago ~01/02/17 595 amLODIPine 5 mg PO DAILY 03/26/15 01/03/17 1 Day Ago ~01/02/17 5 Previous Rx's Medication Instructions Recorded Last Taken Type Pantoprazole [Protonix TAB] 20 mg PO BID #60 tablet. 03/28/15 1 Day Ago Rx ~01/02/17 20 hydrOXYzine PAMOATE [Vistaril] 25 mg PO Q6HR PRN #14 capsule 01/03/17 Unknown Rx metFORMIN XR [Glucophage XR] 500 mg PO BID #60 tab 03/05/19 Unknown Rx Aspirin [Aspirin BABY CHEW TAB] 81 mg PO QDAY #30 tab.chew 07/18/19 Unknown Rx Metoprolol [Lopressor TAB] 25 mg PO BID #30 tablet 07/18/19 Unknown Rx Allergies Allergy/AdvReac Type Severity Reaction Status Date / Time regadenoson [From Lexiscan] Allergy Intermediate Hives Verified 09/09/20 14:24 clindamycin Allergy Hives Verified 09/09/20 14:24 codeine Allergy Dizziness Verified 09/09/20 14:24 Iodinated Contrast Media Allergy Unknown Verified 09/09/20 14:24 [Iodinated Contrast- Oral and IV Dye] naproxen sodium [From Aleve] Allergy Hives Verified 09/09/20 14:24 Penicillins Allergy Unknown Verified 09/09/20 14:24 Sulfa (Sulfonamide Allergy Hives Verified 09/09/20 14:24 Antibiotics) tramadol Allergy Hives Verified 09/09/20 14:24 prednisone AdvReac Unknown Verified 09/09/20 14:24 ED Review of Systems ROS: Stated complaint: TISSUE STUCK IN EAR,PALPITATIONS, HEADACHE Other details as noted in HPI Comment: All other systems reviewed and negative ED Past Medical Hx - Past Medical History Hx Hypertension: Yes Hx Diabetes: Yes Hx Psychiatric Treatment: Yes (depression, anxiety) Additional medical history: ANEMIA, HEART MURMUR, FIBROIDS - Surgical History Additional Surgical History: RIGHT EYE LASER SURGERY 03/25/15 - Social History Smoking Status: Never Smoker - Medications Home Medications: Home Medications Medication Instructions Recorded Confirmed Last Taken Type Brimonidine Tartrate [Alphagan P 1 drop OU Q8HR 03/26/15 01/03/17 1 Day Ago History 0.1%] ~01/02/17 10 Ferrous Sulfate [Feosol 325 MG tab] 325 mg PO BID 03/26/15 01/03/17 1 Day Ago History ~01/02/17 325 Ketorolac Ophth Soln (Nf) [Acular 1 drop OP QID 03/26/15 01/03/17 1 Day Ago History Ophth Soln 0.5%] ~01/02/17 1 Potassium Gluconate 595 mg PO DAILY 03/26/15 01/03/17 1 Day Ago History ~01/02/17 595 amLODIPine 5 mg PO DAILY 03/26/15 01/03/17 1 Day Ago History ~01/02/17 5 Pantoprazole [Protonix TAB] 20 mg PO BID #60 tablet. 03/28/15 01/03/17 1 Day Ago Rx ~01/02/17 20 hydrOXYzine PAMOATE [Vistaril] 25 mg PO Q6HR PRN #14 capsule 01/03/17 Unknown Rx metFORMIN XR [Glucophage XR] 500 mg PO BID #60 tab 03/05/19 Unknown Rx Aspirin [Aspirin BABY CHEW TAB] 81 mg PO QDAY #30 tab.chew 07/18/19 Unknown Rx Metoprolol [Lopressor TAB] 25 mg PO BID #30 tablet 07/18/19 Unknown Rx ED Physical Exam - General Limitations: No Limitations General appearance: alert, in no apparent distress - Head Head exam: Present: atraumatic, normocephalic - Eye Eye exam: Present: normal appearance - ENT ENT exam: Present: mucous membranes moist, other (white colored foreign body in the right ear canal) - Respiratory Respiratory exam: Present: normal lung sounds bilaterally. Absent: respiratory distress, wheezes, rales, rhonchi, stridor, chest wall tenderness, accessory muscle use, decreased breath sounds, prolonged expiratory - Cardiovascular Cardiovascular Exam: Present: regular rate, normal rhythm, normal heart sounds. Absent: systolic murmur, diastolic murmur, rubs, gallop - Neurological Exam Neurological exam: Present: alert, oriented X3 - Psychiatric Psychiatric exam: Present: normal affect, normal mood - Skin Skin exam: Present: warm, dry, intact ED Course Vital Signs 09/09/20 09/09/20 14:25 15:55 Temperature 32.1 F L 98.8 F Pulse Rate 67 Respiratory 16 Rate Blood Pressure 171/70 O2 Sat by Pulse 99 Oximetry - Foreign Body Removal Ear Location: ear canal (R) Foreign Body Suspected: other (white tissue rolled up in a ball) Foreign Body Removed: yes Foreign Body Removal Technique: instrumentation Tympanic Membrane Intact: Yes Patient Tolerated Procedure: well, no complications Complications: none Additional Comments: Used a set of forceps to easily remove tissue ball in the right ear canal, on reexamination of the ear, and normal ear canal, TM is intact, no remaining foreign body, no complications ED Medical Decision Making - Lab Data Vital Signs 09/09/20 09/09/20 14:25 15:55 Temperature 32.1 F L 98.8 F Pulse Rate 67 Respiratory 16 Rate Blood Pressure 171/70 O2 Sat by Pulse 99 Oximetry - Medical Decision Making Patient is a 54-year-old female presents emergency room with complaints of tissue stuck in her right ear that occurred around 1 PM today. She states that she uses a small amount of water and some tissue to clean out her ears but states that the tissue got stuck inside of there. She denies any drainage, hearing changes, anything else getting stuck in the ear. She has a past medical history of hypertension and palpitations. She does see a social service agency director. She states that she was recently started on hydroxyzine but states that it makes her groggy throughout the day and was asking if we could change her sleep medication. Initial temperature entered incorrectly, which was normal, both vitals are normal. on exam: white colored foreign body in the right ear canal. Foreign body removed without any difficulty per procedure note with no complications. Discussed with patient that we would not change her sleep medications in the emergency department that she would need to speak with her primary care doctor regarding this medication as they were the ones who prescribed it. Advised pt Please do not put tissue in the ear. If you need to clean your ears please use Debrox ear cleaning solution kit. there is no wax present in your ears today. Follow-up with your primary care doctor and discuss your medications. Return to emergency room for any new or worsening symptoms. Critical care attestation.: If time is entered above; I have spent that time in minutes in the direct care of this critically ill patient, excluding procedure time. ED Disposition Clinical Impression: Ear foreign body Qualifiers: Encounter type: initial encounter Laterality: right Qualified Code(s): T16.1XXA - Foreign body in right ear, initial encounter Disposition: [id number] TO HOME OR SELFCARE Is pt being admited?: No Does the pt Need Aspirin: No Condition: Stable Instructions: Ear Foreign Body Additional Instructions: Please do not put tissue in the ear. If you need to clean your ears please use Debrox ear cleaning solution kit. there is no wax present in your ears today. Follow-up with your primary care doctor and discuss your medications. Return to emergency room for any new or worsening symptoms. Referrals: PRIMARY CARE,MD [Primary Care Provider] - 2-3 Days Time of Disposition: 15:48 Print Language: MALDIVIAN
== END 2020-09-09 15:55 | disposition home or self-care (01) ==
LOC: ED 13:36
DX: T16.1XXA Foreign body in right ear, initial encounter (principal); I10 Essential (primary) hypertension; E11.9 Type 2 diabetes mellitus without complications; F32.9 Major depressive disorder, single episode, unspecified; F41.9 Anxiety disorder, unspecified; Z98.890 Other specified postprocedural states; Z79.899 Other long term (current) drug therapy; Z88.1 Allergy status to other antibiotic agents; Z88.8 Allergy status to other drugs, medicaments and biological substances; X58.XXXA Exposure to other specified factors, initial encounter; Y93.89 Activity, other specified; Y92.89 Other specified places as the place of occurrence of the external cause; Y99.8 Other external cause status
CPT/HCPCS: 99282